=== PATIENT | male | born 1960 | race Two or more races ===

== ENCOUNTER 2018-09-26 11:21 | Emergency (ER) | payer OTHER ==
[~2018-09-26] VITALS: Ht 177.8 cm; Wt 95.3 kg
[~2018-09-26 11:21] MED LIST: CLONAZEPAM1 MG; INTESTINEX680 MG PO
== END 2018-09-26 16:20 | disposition home or self-care (01) ==
LOC: ER 11:21
DX: M54.5 Low back pain (principal)